=== PATIENT | male | born 1965 | race Caucasian/White ===

== ENCOUNTER → 2018-07-12 | Outpatient (CLI) | payer OTHER ==
--- NOTE | 2018-07-13 09:21 | KCIC ---
Indication: Mid thoracic pain status post fall TECHNIQUE: Multiple views of the thoracic spine COMPARISON: None FINDINGS: There is mild levoscoliosis of the upper thoracic spine. Compression deformity seen of the L1 vertebral body. No compression deformity seen of the thoracic vertebral body. Heart is normal in size. Visualized lungs are clear. Mild multilevel degenerative disc disease at spine. IMPRESSION: 1. No apparent high-grade compression deformity of the thoracic vertebral body. If concern persists further evaluation CT of the thoracic spine is recommended. 2. Compression deformity of the L1 vertebral body, age indeterminate. Correlate with focal tenderness. Electronically signed by: Milton Cueva DO (07/13/2018 9:18 AM) [facility]
== END | disposition home or self-care (01) ==
LOC: KCIC 11:03
PROVIDERS: ATTEND Family Medicine
DX: M43.8X6 Other specified deforming dorsopathies, lumbar region (principal); M51.34 Other intervertebral disc degeneration, thoracic region; M41.84 Other forms of scoliosis, thoracic region
CPT/HCPCS: 72072

== ENCOUNTER → 2018-07-29 | Outpatient (CLI) | payer OTHER ==
--- NOTE | 2018-07-29 09:12 | KCIC ---
Bone mineral density study dated 07/29/2018. Indication: History of compression fracture. Findings: Lower lumbar spine: BMD (g/cm2): Total L1-L4.......... 1.013. . T-Score: Total L1-L4.................... -0.7. Z-Score: Total L1-L4 ................... -0.3. Left Hip: BMD (g/cm2): Total .......... 0.999. . T-Score: Total .................... -0.2. Z-Score: Total ................... 0.1. World Health Organization criteria for BMD interpretation classify patients as Normal (T-score at or above -1.0), Osteopenic (T-score between -1.0 and -2.5), or Osteoporotic (T-score at or below -2.5). Impression: According to the World Health Organization, bone mineral density values within the lower lumbar spine and left femoral neck are within the range of normal. Electronically signed by: Papi Costello MD (07/29/2018 9:09 AM) [facility]
== END ==
LOC: KCIC DEXA 08:26
PROVIDERS: ATTEND Family Medicine
DX: S32.010A Wedge compression fracture of first lumbar vertebra, initial encounter for closed fracture (principal); X58.XXXA Exposure to other specified factors, initial encounter; Y93.89 Activity, other specified; Y92.89 Other specified places as the place of occurrence of the external cause; Y99.8 Other external cause status
CPT/HCPCS: 77080

== ENCOUNTER 2019-02-17 11:37 | Emergency (ER) | payer OTHER ==
[~2019-02-17] VITALS: Ht 180.3 cm; Wt 90.7 kg
[2019-02-17 13:12] LABS: BASO # 0.1 x10^3/uL (0.0-0.2); BASO % 1 % (0-3); EOS # 0.2 x10^3/uL (0.0-0.7); EOS % 3 % (0-3); HEMATOCRIT 43.8 % (39.0-53.0); HEMOGLOBIN 14.9 g/dL (13.0-17.5); LYMPH # 1.9 x10^3/uL (1.0-4.8); LYMPH % 26 % (24-48); MEAN CORPUSCULAR HEMOGLOBIN 31 pg (25-35); MEAN CORPUSCULAR HGB CONC 34 g/dL (31-37); MEAN CORPUSCULAR VOLUME 91 fL (79-100); MONO # 0.6 x10^3/uL (0.0-1.1); MONO % 8 % (0-9); NEUT # 4.4 x10^3/uL (1.8-7.7); NEUT % 61 % (31-73); PLATELET COUNT 204 x10^3/uL (140-400); RED BLOOD COUNT 4.83 x10^6/uL (4.30-5.70); RED CELL DISTRIBUTION WIDTH 13.6 % (11.5-14.5); WHITE BLOOD COUNT 7.1 x10^3/uL (4.0-11.0)
[2019-02-17 13:13] LABS: GFR 78.5
[2019-02-17 13:19] LABS: ALBUMIN 3.5 g/dL (3.4-5.0); MAGNESIUM 2.4 mg/dL (1.8-2.4); TOTAL BILIRUBIN 0.2 mg/dL (0.2-1.0)
--- NOTE | 2019-02-17 13:22 | RAD ---
STUDY: ULTRASOUND VENOUS LOWER EXT BILATERAL INDICATION: Bilateral lower extremity swelling for the past 3 weeks. TECHNIQUE: Color-flow and pulsed wave duplex ultrasound with compression of venous structures of the bilateral lower extremities. COMPARISON: None. FINDINGS: Duplex ultrasound with compression of the deep venous structures of the bilateral lower extremities from the common femoral vein through the popliteal vein is negative for DVT. The posterior tibial and peroneal veins are segmentally visualized and patent where seen. Normal venous waveforms and augmentation are noted throughout. Somewhat prominent inguinal lymph nodes seen bilaterally but measure less than 1.5 cm in short axis dimension and exhibit maintained fatty massiel. IMPRESSION: 1. No deep venous thrombosis seen throughout either lower extremity. 2. Bilateral inguinal lymph nodes measuring less than 1.5 cm in short axis dimension and with maintained fatty massiel suggesting a reactive etiology. Electronically signed by: JUNO LEAL MD (02/17/2019 1:19 PM) [facility]
--- NOTE | 2019-02-17 14:13 | PHYS DOC ---
Past Medical History Past Medical History: Other Additional Past Medical Histor: SCHIZO EFFECTIVE Past Surgical History: No Surgical History Alcohol Use: None Drug Use: None Adult General Chief Complaint Chief Complaint: LOWER EXTREMITY SWELLING [facility] HPI Patient is a 53 year old male presented to ER today for evaluation of bilateral lower extremity swelling and redness for the last 3 weeks. He denies any injury, no chest pain, no trouble breathing. Patient had this problem about 10 years ago. Patient denies any fever, no history of diabetes. aLL OTHER ros IS NEGATIVE UNLESS OTHERWISE NOTED IN hpi Review of Systems Review of Systems See above Current Medications Current Medications Current Medications Medications (Trade) Dose Ordered Sig/Piedad Start Time Stop Time Status Last Admin Dose Admin Cefazolin Sodium/ Dextrose 50 ml @ 100 mls/hr 1X ONCE 02/17/19 15:30 02/17/19 15:59 Allergies Allergies Allergies Coded Allergies Type Severity Reaction Last Updated Verified No Known Drug Allergies 02/17/19 No Physical Exam Physical Exam See above Constitutional: Well developed, well nourished, no acute distress, non-toxic appearance. [] HENT: Normocephalic, atraumatic, bilateral external ears normal, oropharynx moist, no oral exudates, nose normal. [] Eyes: PERRLA, EOMI, conjunctiva normal, no discharge. [] Neck: Normal range of motion, no tenderness, supple, no stridor. [] Cardiovascular:Heart rate regular rhythm, no murmur [] Lungs & Thorax: Bilateral breath sounds clear to auscultation [] Abdomen: Bowel sounds normal, soft, no tenderness, no masses, no pulsatile masses. [] Skin: Warm, dry, no erythema, no rash. [] Back: No tenderness, no CVA tenderness. [] Extremities: BILATERAL LOWER EXTREMITIES SWELLING, ERYTHEMA, TENDER TO PALPATION, NO WOUND. THER REDNESS SPREADING FROM FEET TO JUST BELOW KNEE AREA. Neurologic: Alert and oriented X 3, normal motor function, normal sensory function, no focal deficits noted. [] Psychologic: Affect normal, judgement normal, mood normal. [] Current Patient Data Vital Signs Vital Signs Date Time Temp Pulse Resp B/P (MAP) Pulse Ox O2 Delivery O2 Flow Rate FiO2 02/17/19 13:07 73 16 131/83 (99) 95 Room Air 02/17/19 12:10 97.8 97.8 Lab Values Laboratory Tests Test 02/17/19 12:30 White Blood Count 7.1 x10^3/uL (4.0-11.0) Red Blood Count 4.83 x10^6/uL (4.30-5.70) Hemoglobin 14.9 g/dL (13.0-17.5) Hematocrit 43.8 % (39.0-53.0) Mean Corpuscular Volume 91 fL (79-100) Mean Corpuscular Hemoglobin 31 pg (25-35) Mean Corpuscular Hemoglobin Concent 34 g/dL (31-37) Red Cell Distribution Width 13.6 % (11.5-14.5) Platelet Count 204 x10^3/uL (140-400) Neutrophils (%) (Auto) 61 % (31-73) Lymphocytes (%) (Auto) 26 % (24-48) Monocytes (%) (Auto) 8 % (0-9) Eosinophils (%) (Auto) 3 % (0-3) Basophils (%) (Auto) 1 % (0-3) Neutrophils # (Auto) 4.4 x10^3/uL (1.8-7.7) Lymphocytes # (Auto) 1.9 x10^3/uL (1.0-4.8) Monocytes # (Auto) 0.6 x10^3/uL (0.0-1.1) Eosinophils # (Auto) 0.2 x10^3/uL (0.0-0.7) Basophils # (Auto) 0.1 x10^3/uL (0.0-0.2) Sodium Level 144 mmol/L (136-145) Potassium Level 4.0 mmol/L (3.5-5.1) Chloride Level 108 mmol/L (98-107) H Carbon Dioxide Level 29 mmol/L (21-32) Anion Gap 7 (6-14) Blood Urea Nitrogen 8 mg/dL (8-26) Creatinine 1.0 mg/dL (0.7-1.3) Estimated GFR (Cockcroft-Gault) 78.5 BUN/Creatinine Ratio 8 (6-20) Glucose Level 92 mg/dL (70-99) Calcium Level 9.0 mg/dL (8.5-10.1) Magnesium Level 2.4 mg/dL (1.8-2.4) Total Bilirubin 0.2 mg/dL (0.2-1.0) Aspartate Amino Transferase (AST) 19 U/L (15-37) Alanine Aminotransferase (ALT) 33 U/L (16-63) Alkaline Phosphatase 55 U/L (46-116) QA-Abu-H-Type Natriuretic Peptide 49 pg/mL (0-124) Total Protein 7.0 g/dL (6.4-8.2) Albumin 3.5 g/dL (3.4-5.0) Albumin/Globulin Ratio 1.0 (1.0-1.7) Laboratory Tests 02/17/19 12:30 Laboratory Tests 02/17/19 12:30 EKG EKG [] Radiology/Procedures Radiology/Procedures [] Impressions: [facility] [address] [place], [place] [id number] IMAGING REPORT Signed PATIENT: ISATU ZUNIGA ACCOUNT: [id number] : 1965 LOCATION: ER AGE: 53 SEX: M EXAM STATUS: REG ER ORD. PHYSICIAN: MIQUEL CHUN DO REASON: BOTH LEGS SWELLING FOR 3 WEEKS. PROCEDURE: VENOUS LOWER EXT BILATERAL STUDY: ULTRASOUND VENOUS LOWER EXT BILATERAL INDICATION: Bilateral lower extremity swelling for the past 3 weeks. TECHNIQUE: Color-flow and pulsed wave duplex ultrasound with compression of venous structures of the bilateral lower extremities. COMPARISON: None. FINDINGS: Duplex ultrasound with compression of the deep venous structures of the bilateral lower extremities from the common femoral vein through the popliteal vein is negative for DVT. The posterior tibial and peroneal veins are segmentally visualized and patent where seen. Normal venous waveforms and augmentation are noted throughout. Somewhat prominent inguinal lymph nodes seen bilaterally but measure less than 1.5 cm in short axis dimension and exhibit maintained fatty massiel. IMPRESSION: 1. No deep venous thrombosis seen throughout either lower extremity. 2. Bilateral inguinal lymph nodes measuring less than 1.5 cm in short axis dimension and with maintained fatty massiel suggesting a reactive etiology. Electronically signed by: JUNO LEAL MD (02/17/2019 1:19 PM) [facility] DICTATED and SIGNED BY: JUNO LEAL MD DATE: 02/17/19 5025 Course & Med Decision Making Course & Med Decision Making Pertinent Labs and Imaging studies reviewed. (See chart for details) [] Dragon Disclaimer Dragon Disclaimer This electronic medical record was generated, in whole or in part, using a voice recognition dictation system. Departure Departure Impression: Primary Impression: Bilateral lower leg cellulitis Disposition: HOME, SELF-CARE Condition: STABLE Referrals: BALJINDER HACKETT MD (PCP) FOLLOW UP WITH YOUR DOCTOR THIS WEEK FOR REEVALUATION. Patient Instructions: Cellulitis Scripts Cephalexin (CEPHALEXIN) 500 Mg Capsule 500 MG PO QID for 10 Days, #40 CAP Prov: MIQUEL CHUN DO 02/17/19 Sulfamethoxazole/Trimethoprim (BACTRIM DS TABLET) 1 Each Tablet 1 EACH PO BID for 10 Days, #20 TAB Prov: MIQUEL CHUN DO 02/17/19 MIQUEL CHUN DO Feb 17, 2019 14:12
[2019-02-17 14:37] VITALS: BP 128/85
[2019-02-17] MEDS ORDERED: SULF1TAB24 PO (14:49)
[2019-02-17] MEDS ORDERED: CEPH500C PO (14:49)
== END 2019-02-17 14:52 | disposition home or self-care (01) ==
LOC: ER 11:37
DX: L03.116 Cellulitis of left lower limb (principal); L03.115 Cellulitis of right lower limb
CPT/HCPCS: 36415; 80053; 83735; 83880; 85025; 93970; 99285-25

== ENCOUNTER 2019-03-11 09:34 | Emergency (ER) | payer OTHER ==
[~2019-03-11] VITALS: Ht 180.3 cm; Wt 95.3 kg
[~2019-03-11 09:34] MED LIST: CEPH500C PO; SULF1TAB24 PO
--- NOTE | 2019-03-11 09:55 | PHYS DOC ---
Past Medical History Past Medical History: Other Additional Past Medical Histor: MR NATALIIA Past Surgical History: No Surgical History Alcohol Use: None Drug Use: None Adult General Chief Complaint Chief Complaint: LOWER EXTREMITY SWELLING HPI HPI 53-year-old male presents to the emergency Department complaints of bilateral lower extremity edema. Patient was seen here in January with diagnosis of bilateral lower extremity cellulitis and provided with antibiotic therapy. He states the swelling improved post antibiotics however has returned. Patient denies any chest pain, shortness breath, fever, abdominal pain, nausea, vomiting. Nothing makes his edema worse, nothing makes it better. Review of Systems Review of Systems Constitutional: Denies fever or chills [] Respiratory: Denies cough or shortness of breath [] Cardiovascular: No additional information not addressed in HPI [] GI: Denies abdominal pain, nausea, vomiting, bloody stools or diarrhea [] Musculoskeletal: bilateral lower extremity edema, redness Integument: Denies rash or skin lesions [] Neurologic: Denies headache, focal weakness or sensory changes [] All other systems were reviewed and found to be within normal limits, except as documented in this note. Allergies Allergies Allergies Coded Allergies Type Severity Reaction Last Updated Verified No Known Drug Allergies 02/17/19 No Physical Exam Physical Exam Constitutional: Well developed, well nourished, no acute distress, non-toxic appearance. [] HENT: Normocephalic, atraumatic, bilateral external ears normal, oropharynx mo ist, no oral exudates, nose normal. [] Eyes: PERRLA, EOMI, conjunctiva normal, no discharge. [] Neck: Normal range of motion, no tenderness, supple, no stridor. [] Cardiovascular:Heart rate regular rhythm, no murmur [] Lungs & Thorax: BS clear, decreased bs posteriorly Abdomen: Bowel sounds normal, soft, no tenderness, no masses, no pulsatile masses. [] Skin: Warm, dry, no erythema, no rash. [] Extremities: edema, erythema appreciated to bilateral lower ext Neurologic: Alert and oriented X 3, no focal deficits noted. [] Psychologic: Affect normal, judgement normal, mood normal. [] Current Patient Data Vital Signs Vital Signs Date Time Temp Pulse Resp B/P (MAP) Pulse Ox O2 Delivery O2 Flow Rate FiO2 03/11/19 09:41 97.6 90 16 128/82 (97) 96 Room Air 97.6 Lab Values Laboratory Tests Test 03/11/19 09:59 White Blood Count 10.5 x10^3/uL (4.0-11.0) Red Blood Count 5.20 x10^6/uL (4.30-5.70) Hemoglobin 15.8 g/dL (13.0-17.5) Hematocrit 46.8 % (39.0-53.0) Mean Corpuscular Volume 90 fL (79-100) Mean Corpuscular Hemoglobin 31 pg (25-35) Mean Corpuscular Hemoglobin Concent 34 g/dL (31-37) Red Cell Distribution Width 13.3 % (11.5-14.5) Platelet Count 188 x10^3/uL (140-400) Neutrophils (%) (Auto) 64 % (31-73) Lymphocytes (%) (Auto) 24 % (24-48) Monocytes (%) (Auto) 9 % (0-9) Eosinophils (%) (Auto) 2 % (0-3) Basophils (%) (Auto) 1 % (0-3) Neutrophils # (Auto) 6.7 x10^3/uL (1.8-7.7) Lymphocytes # (Auto) 2.5 x10^3/uL (1.0-4.8) Monocytes # (Auto) 1.0 x10^3/uL (0.0-1.1) Eosinophils # (Auto) 0.2 x10^3/uL (0.0-0.7) Basophils # (Auto) 0.1 x10^3/uL (0.0-0.2) D-Dimer (Sussy) 0.71 ug/mlFEU (0.00-0.50) H Sodium Level 143 mmol/L (136-145) Potassium Level 3.9 mmol/L (3.5-5.1) Chloride Level 108 mmol/L (98-107) H Carbon Dioxide Level 28 mmol/L (21-32) Anion Gap 7 (6-14) Blood Urea Nitrogen 9 mg/dL (8-26) Creatinine 1.0 mg/dL (0.7-1.3) Estimated GFR (Cockcroft-Gault) 78.5 BUN/Creatinine Ratio 9 (6-20) Glucose Level 90 mg/dL (70-99) Calcium Level 8.7 mg/dL (8.5-10.1) Total Bilirubin 0.4 mg/dL (0.2-1.0) Aspartate Amino Transferase (AST) 15 U/L (15-37) Alanine Aminotransferase (ALT) 34 U/L (16-63) Alkaline Phosphatase 61 U/L (46-116) DA-Bcn-B-Type Natriuretic Peptide 29 pg/mL (0-124) Total Protein 7.1 g/dL (6.4-8.2) Albumin 3.5 g/dL (3.4-5.0) Albumin/Globulin Ratio 1.0 (1.0-1.7) Laboratory Tests 03/11/19 09:59 Laboratory Tests 03/11/19 09:59 EKG EKG [] Radiology/Procedures Radiology/Procedures [facility] [address] [place] [address] IMAGING REPORT Signed PATIENT: ISATU ZUNIGA ACCOUNT: [id number] : 1965 LOCATION: ER AGE: 53 SEX: M EXAM STATUS: REG ER ORD. PHYSICIAN: JOANA ROCKWELL MD REASON: cough PROCEDURE: CHEST AP ONLY CHEST AP ONLY INDICATION: Cough. COMPARISON STUDY: Thoracic spine radiograph 07/12/2018. FINDINGS: Lungs: Normal lung volume. No pulmonary mass or consolidation. The tracheobronchial tree and hilar structures are normal. Pleura: No pleural effusion or pneumothorax. Heart and Mediastinum: The cardiomediastinal silhouette is normal. Mild tortuosity of the thoracic aorta. IMPRESSION: No acute cardiopulmonary process. Electronically signed by: Scotty Benson MD (03/11/2019 10:33 AM) [facility] DICTATED and SIGNED BY: SCOTTY BENSON MD DATE: 03/11/19 1033 [] Course & Med Decision Making Course & Med Decision Making Pertinent Labs and Imaging studies reviewed. (See chart for details) []53-year-old male presents to the emergency Department complaints of bilateral lower extremity edema. Patient was seen here in January with diagnosis of bilateral lower extremity cellulitis and provided with antibiotic therapy. He states the swelling improved post antibiotics however has returned. Patient denies any chest pain, shortness breath, fever, abdominal pain, nausea, vomiting. Nothing makes his edema worse, nothing makes it better. Labs/Imaging reviewed Ddimer elevated 0.71 will plan for bilateral lower ext venous doppler to rule out DVT - no evidence of DVT appreciated Chest unremarkable for acute process, no consolidation or pulmonary edema appreciated Discussed with mom - will plan abx for cellulitis, lasix as well for edema Follow up with PCP in 3 days [place] Disclaimer Dragon Disclaimer This electronic medical record was generated, in whole or in part, using a voice recognition dictation system. Departure Departure Impression: Primary Impression: Bilateral lower extremity edema Additional Impression: Bilateral lower leg cellulitis Disposition: HOME, SELF-CARE Condition: STABLE Referrals: BALJINDER HACKETT MD (PCP) Patient Instructions: Cellulitis, [id number], Peripheral Edema Additional Instructions: Recommend follow up with PCP 3 - 5 days Return to the ER with worsening symptoms, intractable pain, fever, altered mental status Tylenol/Motrin as needed for pain Take antibiotics as directed Binu hose daily Scripts Doxycycline Hyclate (DOXYCYCLINE HYCLATE) 100 Mg Capsule 1 CAP PO BID, #14 CAP Prov: JOANA ROCKWELL MD 03/11/19 Potassium Chloride (POTASSIUM CHLORIDE) 10 Meq Tab.sr.24h 10 MEQ PO DAILY for 30 Days, #30 TAB.SR Prov: JOANA ROCKWELL MD 03/11/19 Furosemide (LASIX) 20 Mg Tablet 1 TAB PO DAILY for 30 Days, #30 TAB 0 Refills Prov: JOANA ROCKWELL MD 03/11/19 Problem Qualifiers JOANA ROCKWELL MD Mar 11, 2019 09:55
[2019-03-11 10:27] LABS: ALBUMIN 3.5 g/dL (3.4-5.0); CALCIUM 8.7 mg/dL (8.5-10.1); GFR 78.5; POTASSIUM 3.9 mmol/L (3.5-5.1); TOTAL BILIRUBIN 0.4 mg/dL (0.2-1.0); TOTAL PROTEIN 7.1 g/dL (6.4-8.2)
[2019-03-11 10:29] LABS: BASO # 0.1 x10^3/uL (0.0-0.2); BASO % 1 % (0-3); EOS # 0.2 x10^3/uL (0.0-0.7); EOS % 2 % (0-3); HEMATOCRIT 46.8 % (39.0-53.0); HEMOGLOBIN 15.8 g/dL (13.0-17.5); LYMPH # 2.5 x10^3/uL (1.0-4.8); LYMPH % 24 % (24-48); MEAN CORPUSCULAR HEMOGLOBIN 31 pg (25-35); MEAN CORPUSCULAR HGB CONC 34 g/dL (31-37); MEAN CORPUSCULAR VOLUME 90 fL (79-100); MONO % 9 % (0-9); NEUT # 6.7 x10^3/uL (1.8-7.7); NEUT % 64 % (31-73); PLATELET COUNT 188 x10^3/uL (140-400); RED CELL DISTRIBUTION WIDTH 13.3 % (11.5-14.5); WHITE BLOOD COUNT 10.5 x10^3/uL (4.0-11.0)
--- NOTE | 2019-03-11 10:36 | RAD ---
CHEST AP ONLY INDICATION: Cough. COMPARISON STUDY: Thoracic spine radiograph 07/12/2018. FINDINGS: Lungs: Normal lung volume. No pulmonary mass or consolidation. The tracheobronchial tree and hilar structures are normal. Pleura: No pleural effusion or pneumothorax. Heart and Mediastinum: The cardiomediastinal silhouette is normal. Mild tortuosity of the thoracic aorta. IMPRESSION: No acute cardiopulmonary process. Electronically signed by: Keyshawn Benson MD (03/11/2019 10:33 AM) [facility]
[2019-03-11] MEDS ORDERED: FURO-69 PO (11:46)
[2019-03-11] MEDS ORDERED: POTA10TA12 PO (11:46)
[2019-03-11] MEDS ORDERED: DOXY100C2 PO (11:46)
--- NOTE | 2019-03-11 11:58 | RAD ---
Examination: VENOUS LOWER EXT BILATERAL History: Elevated d-dimer. Lower extremity edema bilaterally. COMPARISON/CORRELATION: None FINDINGS: Bilateral lower extremity duplex venous ultrasound exam was performed. Grayscale, color Doppler, and spectral Doppler imaging was performed. Compression and augmentation was performed. The right common femoral vein, superficial femoral vein, popliteal vein, and greater saphenous vein are normal with no evidence of deep venous thrombus. Normal compressibility and augmentation is evident. The left common femoral vein, superficial femoral vein, popliteal vein, and greater saphenous vein are normal with no evidence of deep venous thrombus. Normal compressibility and augmentation is evident. Visualized calf veins are unremarkable. Bilateral groin lymph nodes are present with the largest in the right measuring 2.1 cm diameter and the largest on the left measuring 1.8 cm diameter. Lymph nodes have normal contours, echotexture and massiel. IMPRESSION: Normal bilateral lower extremity duplex ultrasound exam. No evidence of deep venous thrombus involving the lower extremities. Electronically signed by: Cristian Escobar MD (03/11/2019 11:54 AM) [facility]
[2019-03-11 12:30] VITALS: BP 124/82
== END 2019-03-11 12:43 | disposition home or self-care (01) ==
LOC: ER 09:34
DX: R60.0 Localized edema (principal); L03.116 Cellulitis of left lower limb; L03.115 Cellulitis of right lower limb
CPT/HCPCS: 36415; 71045; 80053; 83880; 85025; 85379; 93970; 99285-25